=== PATIENT | male | born 1960 | race Caucasian/White ===

== ENCOUNTER 2021-04-22 12:28 | Emergency (ER) | payer OTHER ==
[~2021-04-22] VITALS: Ht 170.2 cm; Wt 101.2 kg
[2021-04-22 12:28] VITALS: BP_SYST 120
[2021-04-22] MEDS ORDERED: AMOX500C2 PO (15:04)
[2021-04-22 15:14] VITALS: BP_SYST 132
[2021-04-23] MEDS ORDERED: HYDR-3917 PO ×2 (14:13→15:04)
== END 2021-04-22 15:16 | disposition home or self-care (01) ==
LOC: SED 12:28
DX: S61.213A Laceration without foreign body of left middle finger without damage to nail, initial encounter (principal); W31.89XA Contact with other specified machinery, initial encounter; Y93.89 Activity, other specified; Y92.89 Other specified places as the place of occurrence of the external cause; Y99.8 Other external cause status
CPT/HCPCS: 73140-TC; 99283